=== PATIENT | female | born 1995 | race Caucasian/White ===

== ENCOUNTER → 2017-06-05 | Outpatient (REF) | payer OTHER ==
[~2017-06-05] MED LIST: ACET50TA PO; IBUP-1114 PO; PRENTAB29 PO; PRENTAB9 PO
[2017-06-05 18:10] LABS: BASO % 0.4 % (0.0-1.0); EOS # 0.1 K/mm3 (0.0-0.50); EOS % 0.8 % (0.0-3.0); LARGE UNSTAINED CELL # 0.2 K/mm3 (0.0-0.4); LARGE UNSTAINED CELL % 1.4 % (0.0-4.0); LYMPH # 1.7 K/mm3 (1.5-6.5); LYMPH % 14.3 % (24.0-44.0); MEAN CORPUSCULAR HGB CONC 33.4 g/dl (32.0-36.5); MEAN CORPUSCULAR VOLUME 80.8 fl (80.0-96.0); MONO # 0.5 K/mm3 (0.0-0.8); MONO % 4.5 % (0.0-5.0); NEUTROPHILS # 9.1 K/mm3 (1.8-7.7); NEUTROPHILS % 78.6 % (36.0-66.0); PLATELET COUNT, AUTOMATED 300 k/mm3 (150-450); RED CELL DISTRIBUTION WIDTH 14.8 % (11.5-14.5); WHITE BLOOD COUNT 11.6 K/mm3 (4.0-10.0)
[2017-06-08 10:54] LABS: HBsAg Prenatal NEGATIVE (NEGATIVE)
== END ==
LOC: M LABDRAW1 16:04
PROVIDERS: ATTEND Advanced Practice Midwife
DX: Z34.81 Encounter for supervision of other normal pregnancy, first trimester (principal)

== ENCOUNTER → 2017-06-12 | Outpatient (CLI) | payer OTHER ==
--- NOTE | 2017-06-12 13:29 | REP ---
Obstetric ultrasound for anatomy: There is a single intrauterine gestation in a breech presentation. There is movement and cardiac activity. heart rate is 139 beats per minute. The placenta is anterior. There is no placenta previa or abruptio. Placenta is grade zero. The amniotic fluid volume subjectively is normal. The cervix is 4.6 cm in length. The maternal adnexa and cul-de-sac are unremarkable. By the ultrasound today gestational age is 25 weeks 1 day with an HEMA of 09/24/2017. The LMP is unknown. weight is 145 grams (1 pound, 13 ounces). This is the 61st percentile for 25 weeks 1 day. The following anatomic structures are identified and are unremarkable: Intracranial lateral ventricles, choroid plexus, cerebellum, cisterna magna, facial profile, cavum septum pellucidum, lungs, four-chamber heart, cardiac right and left ventricular outflow tracts, diaphragm, stomach, cord insertion, three-vessel cord, kidneys, bladder, and upper lower extremities. The spine is not optimally demonstrated because of position. Otherwise, there are no anomalies. Follow-up study of the spine might be considered. Signed by Darrion Heath MD 06/12/2017 01:21 P
== END ==
LOC: M SMT 11:31
PROVIDERS: ATTEND Advanced Practice Midwife
DX: Z34.82 Encounter for supervision of other normal pregnancy, second trimester (principal); Z3A.25 25 weeks gestation of pregnancy

== ENCOUNTER → 2017-09-17 | Outpatient (REF) | payer OTHER | LOC: M LAB REF 12:46 | PROVIDERS: ATTEND Advanced Practice Midwife | DX: Z34.83 Encounter for supervision of other normal pregnancy, third trimester (principal); Z36.85 Encounter for antenatal screening for Streptococcus B ==

== ENCOUNTER 2017-09-30 00:10 | Inpatient (IN) | payer OTHER ==
[2017-09-30] VITALS (24 sets, daily range): BP systolic 105–133; BP diastolic 52–77
[~2017-09-30] VITALS: Ht 170.2 cm; Wt 115.6 kg
[2017-09-30] MEDS ORDERED: LR 1,000 ML IV SCH (00:56)
[2017-09-30 01:16] LABS: MEAN CORPUSCULAR HEMOGLOBIN 24.9 pg (27.0-33.0); MEAN CORPUSCULAR HGB CONC 32.7 g/dl (32.0-36.5); MEAN CORPUSCULAR VOLUME 76.2 fl (80.0-96.0); PLATELET COUNT, AUTOMATED 298 10^3/uL (150-450); RED CELL DISTRIBUTION WIDTH 15.4 % (11.5-14.5)
[2017-09-30] MEDS ORDERED: FENTANYL 2MCG/ML ROPIVACAINE 0.2% IN 0.9% NACL 200ML IVBAG As Ordered ONE (01:55)
[2017-09-30] MEDS ORDERED: diphenhydrAMINE INJ 50MG/ML VIAL (J1200) IV PRN (02:32)
[2017-09-30] MEDS ORDERED: EPIDURAL COMMENT XX SCH (02:32)
[2017-09-30] MEDS ORDERED: NALOXONE INJ 0.4 MG/1 ML VIAL (J2310) IV PRN (02:32)
[2017-09-30] MEDS ORDERED: ePHEDrine SULFATE 25 MG/5 ML(5MG/ML) SYRINGE IV PRN (02:32)
[2017-09-30] MEDS ORDERED: EPIDURAL/PCA KEYS XX PRN (02:32)
[2017-09-30] MEDS ORDERED: FENTANYL/ROPIVACAINE/NACL BAG 200 ML EPIDURAL SCH (02:32)
[2017-09-30] MEDS ORDERED: LACTATED RINGER'S 1000 ML IV PRN (02:32)
[2017-09-30] MEDS ORDERED: ONDANSETRON 4MG/2ML VIAL (J2405) IV PRN (02:32)
[2017-09-30] MEDS ORDERED: REFRIGERATOR IV KEYS XX PRN (02:32)
[2017-09-30] MEDS ORDERED: OXYTOCIN 30 UNITS IN 0.9% NaCl 500ML IV BAG (J2590) As Ordered ONE (03:14)
[2017-09-30] MEDS ORDERED: OXYTOCIN DRIP 30 UNITS in APPROPRIATE DILUENT 1 EA IV SCH (04:14)
[2017-09-30] MEDS ORDERED: DOCUSATE SODIUM 100 MG CAP PO PRN (04:15)
[2017-09-30] MEDS ORDERED: ANUSOL HC CREAM 30GM TOP PRN (04:15)
[2017-09-30] MEDS ORDERED: MOM 30ML SUSPENSION UDC PO PRN (04:15)
[2017-09-30] MEDS ORDERED: METHYLERGONOVINE MALEATE 0.2 MG TAB PO PRN (04:15)
[2017-09-30] MEDS ORDERED: ACETAMINOPHEN 500 MG TAB PO PRN (04:15)
[2017-09-30] MEDS ORDERED: MEASLES,MUMPS,RUBELLA VACCINE INJ (MMR-II) (90707) SC SCH (04:15)
[2017-09-30] MEDS ORDERED: RHOGAM 300 MCG (1500 IU) INJ (J2790) IM SCH (04:15)
[2017-09-30] MEDS ORDERED: DIBUCAINE 1% OINTMENT 30GM TOP PRN (04:15)
--- NOTE | 2017-09-30 05:13 | HPE ---
DATE OF ADMISSION: 09/30/2017 REASON FOR ADMISSION: Labor. HISTORY OF PRESENT ILLNESS: Ms. Schneider is a 22-year-old 2, para 1, who presents at 40 weeks 6 days by the mid-term ultrasound with complaints of contractions. She voiced contractions throughout the night and reports active movement. Denies any vaginal bleeding or leakage of fluid. Her course has been remarkable for late entry to care at 22 weeks. PAST MEDICAL HISTORY: None. PAST SURGICAL HISTORY: None. PAST OBSTETRICAL HISTORY: She is 2 para 1. She has had one term vaginal delivery proven to 8 pounds 13 ounces. MEDICATIONS: vitamins. ALLERGIES: No known drug allergies. SOCIAL HISTORY: Denies any alcohol, tobacco or drug use. PHYSICAL EXAMINATION: VITAL SIGNS: Stable. She is afebrile. She has a category one heart tracing with contractions approximately every three minutes on tocometer. LUNGS: Clear to auscultation bilaterally. CARDIOVASCULAR: Heart regular rate and rhythm. CERVICAL EXAM: She is 5 cm dilated, 90% effaced, -2 station. LABORATORY DATA: Blood type is O positive, antibody screen negative. Rubella is immune. RPR nonreactive. Hepatitis surface antigen is negative. HIV is negative. Hepatitis C is nonreactive. Chlamydia and gonorrhea screens are negative. She had a negative GBS. ASSESSMENT: 1. Ms. Schneider is a 22-year-old 2, para 1, at 40 weeks and six days in active labor. 2. Reassuring status. PLAN: 1. Admit to labor and delivery. Complete blood count (CBC), rapid plasma reagin (RPR), type and screen. Urine toxicology screen. 2. The patient is a good candidate for an epidural. 3. Anticipate spontaneous vaginal delivery.
--- NOTE | 2017-09-30 05:22 | DN ---
DATE: 09/30/2017 TIME OF : 0346 hours GENDER: Female. SCORES: Seven and nine. WEIGHT: 9 pounds 1 ounce, or 4110 grams. ANESTHESIA: Epidural. LACERATIONS: Second-degree midline laceration. COUNTS: Five laparotomy sponges accounted for prior to and after delivery. Two sharps removed from the delivery field. ESTIMATED BLOOD LOSS: 300 mL. DELIVERY NOTE: On 09/30/2017, at 0341, Ms. Schneider, a 22-year-old 2, now para 2, had a spontaneous vaginal delivery of a liveborn female infant, scores 7 and 9, weight 4110 grams or 9 pounds 1 ounce. Head was delivered right occiput anterior (SHAHLA). There was a loose nuchal cord which was manually reduced, followed by delivery of left anterior shoulder, right posterior shoulder, and corpus. was handed to mother with good cry. Cord was clamped times two and was cut by the father of the baby under my direction. Cord blood was obtained. Placenta was then drained and delivered grossly intact. A premixed bag of 500 mL of normal saline with 30 units of Pitocin was bolused, along with uterine massage. The uterus firm. On inspection, there was a second-degree midline laceration which was repaired with 3-0 Vicryl Rapide. On re-inspection, cervix, vagina and perineum were grossly intact and hemostatic. Mother and baby to recovery in stable condition. The couple has decided to name their daughter
[2017-09-30] MEDS: PRENATAL VITAMINS CHEWABLE TABLET PO SCH (08:15)
[2017-09-30] MEDS: IBUPROFEN 800 MG TAB PO PRN (19:43)
[2017-10-01 06:00] VITALS: BP 107/55
[2017-10-01] MEDS: PRENATAL VITAMINS CHEWABLE TABLET PO SCH (07:40)
[2017-10-01] MEDS: IBUPROFEN 800 MG TAB PO PRN (07:42)
[2017-10-01] MEDS ORDERED: MOTR200T44 PO (08:06)
[2017-10-01] MEDS ORDERED: INFLUENZA QUADRIVALENT PF VACCINE 0.5ML SYRINGE (90686) IM ONE (10:00)
== END 2017-10-01 11:10 | disposition home or self-care (01) | DRG 775 ==
LOC: M LDO 00:10 → M LDI 00:34 → M OBS 06:30
PROVIDERS: ADMIT Obstetrics & Gynecology; ATTEND Obstetrics & Gynecology
PROC: 10E0XZZ Delivery of Products of Conception, External Approach (ICD-10-PCS; principal; 2017-09-30)
PROC: 0KQM0ZZ Repair Perineum Muscle, Open Approach (ICD-10-PCS; 2017-09-30)
DX: O48.0 Post-term pregnancy (principal); Z3A.40 40 weeks gestation of pregnancy; O70.1 Second degree perineal laceration during delivery; O69.81X0 Labor and delivery complicated by cord around neck, without compression, not applicable or unspecified; Z37.0 Single live birth

== ENCOUNTER 2018-12-27 08:42 | Emergency (ER) | payer OTHER ==
[~2018-12-27] VITALS: Ht 172.7 cm; Wt 97.7 kg
[~2018-12-27 08:42] MED LIST changes: -ACET50TA PO; +MAPA500T2 PO; +MOTR200T44 PO
[2018-12-27 08:43] VITALS: BP 124/61
[2018-12-27] MEDS ORDERED: AUGM875T28 PO (09:17)
[2018-12-27] MEDS ORDERED: ACET-683 PO (09:17)
[2018-12-27] MEDS ORDERED: IBUP80TA PO (09:17)
== END 2018-12-27 09:30 | disposition home or self-care (01) ==
LOC: M ED 08:42
DX: K04.7 Periapical abscess without sinus (principal); K02.9 Dental caries, unspecified

== ENCOUNTER 2019-03-08 20:35 | Emergency (ER) | payer OTHER ==
[~2019-03-08] VITALS: Ht 172.7 cm; Wt 95.5 kg
[2019-03-08 20:35] VITALS: BP 125/68
[~2019-03-08 20:35] MED LIST changes: +ACET-683 PO; +AUGM875T28 PO; +IBUP80TA PO
[2019-03-08] MEDS ORDERED: KEFL500C17 PO (22:13)
[2019-03-08] MEDS ORDERED: CEPHALEXIN 500 MG CAP PO ONE (22:30)
== END 2019-03-08 23:03 | disposition home or self-care (01) ==
LOC: M ED 20:35
DX: L03.314 Cellulitis of groin (principal); D57.80 Other sickle-cell disorders without crisis; F32.9 Major depressive disorder, single episode, unspecified; Z72.0 Tobacco use

== ENCOUNTER → 2019-04-06 | Outpatient (CLI) | payer OTHER ==
[~2019-04-06] MED LIST changes: +KEFL500C17 PO
[2019-04-06 17:58] LABS: BASO # 0.1 10^3/uL (0.0-0.2); BASO % 0.4 % (0.0-1.0); EOS # 0.1 10^3/uL (0.0-0.50); EOS % 0.6 % (0.0-3.0); HEMATOCRIT 34.5 % (36.0-47.0); HEMOGLOBIN 11.3 g/dl (12.0-15.5); LYMPH # 2.3 10^3/uL (1.5-6.5); LYMPH % 16.8 % (24.0-44.0); MEAN CORPUSCULAR HGB CONC 32.8 g/dl (32.0-36.5); MEAN CORPUSCULAR VOLUME 85.6 fl (80.0-96.0); MONO # 0.8 10^3/uL (0.0-0.8); MONO % 5.7 % (0.0-5.0); NEUTROPHILS # 10.2 10^3/uL (1.8-7.7); NEUTROPHILS % 75.8 % (36.0-66.0); PLATELET COUNT, AUTOMATED 279 10^3/uL (150-450); RED BLOOD COUNT 4.03 10^6/uL (4.00-5.40); WHITE BLOOD COUNT 13.4 10^3/uL (4.0-10.0)
[2019-04-06 19:25] LABS: CHLAMYDIA DNA AMPLIFICATION NEGATIVE (NEGATIVE); GC DNA AMPLIFICATION NEGATIVE (NEGATIVE)
[2019-04-08 11:34] LABS: HIV 1&2 SCREEN CENTAUR NEGATIVE (NEGATIVE); RUBELLA IgG QUALITATIVE IMMUNE (IMMUNE)
== END ==
LOC: M SMT 15:03
PROVIDERS: ATTEND Advanced Practice Midwife
DX: Z36.89 Encounter for other specified antenatal screening (principal)

== ENCOUNTER 2019-04-17 12:39 | Outpatient (CLI) | payer OTHER ==
[~2019-04-17] VITALS: Ht 172.7 cm; Wt 107.6 kg
[2019-04-17 12:57] VITALS: BP 119/64
[2019-04-17] MEDS ORDERED: PRENTAB9 PO (13:08)
[2019-04-17] MEDS ORDERED: MAPA500T2 PO (13:08)
== END 2019-04-17 13:41 | disposition home or self-care (01) ==
LOC: M LDO 12:39
PROVIDERS: ATTEND Specialist
DX: O26.892 Other specified pregnancy related conditions, second trimester (principal); R10.9 Unspecified abdominal pain; O47.02 False labor before 37 completed weeks of gestation, second trimester; Z3A.24 24 weeks gestation of pregnancy
CPT/HCPCS: G0378; G0463

== ENCOUNTER → 2019-04-28 | Outpatient (CLI) | payer OTHER ==
--- NOTE | 2019-04-28 16:24 | REP ---
Clinical: Anatomical evaluation. Comparison: 04/12/2019 . Findings: Examination demonstrates a single live intrauterine in transverse (head to maternal right) presentation. motion is identified by technologist. Placenta is noted posterior and grade one without evidence for placenta previa or abruption. Amniotic fluid volume is normal. Cervix measures 5.3 cm in length and appears closed. Nuchal cord cannot be excluded. Gestational age by LMP 26 weeks 3 days with HEMA 08/01/2019 . Gestational age by current measurements 26 weeks 6 days with HEMA 07/29/2019 . FHR equals 133 beats per minute. Estimated weight 944 grams ( 46th percentile). Anatomical assessment demonstrates normal structures including cranium, choroid plexus, cavum, cerebellum/posterior fossa, facial features, diaphragm, stomach, cord insertion/three-vessel cord, kidneys/bladder, spine, and upper extremities. Impression: 1. Single live intrauterine in transverse lie demonstrating appropriate interval growth. 2. Nuchal cord cannot be excluded. 3. In conjunction with prior examination anatomical assessment is complete and normal. Electronically Signed by Yosvany Reis MD 04/28/2019 04:16 P
== END ==
LOC: M RAD 15:32
PROVIDERS: ATTEND Advanced Practice Midwife
DX: Z34.82 Encounter for supervision of other normal pregnancy, second trimester (principal); Z3A.26 26 weeks gestation of pregnancy

== ENCOUNTER → 2019-05-02 | Outpatient (REF) | payer OTHER | LOC: M LAB REF 12:39 | PROVIDERS: ATTEND Advanced Practice Midwife | DX: Z34.82 Encounter for supervision of other normal pregnancy, second trimester (principal) ==

== ENCOUNTER → 2019-05-26 | Outpatient (REF) | payer OTHER | LOC: M LAB REF 13:19 | PROVIDERS: ATTEND Advanced Practice Midwife | DX: Z34.82 Encounter for supervision of other normal pregnancy, second trimester (principal) ==

== ENCOUNTER → 2019-07-08 | Outpatient (REF) | payer OTHER | LOC: M LAB REF 16:55 | PROVIDERS: ATTEND Advanced Practice Midwife | DX: Z34.83 Encounter for supervision of other normal pregnancy, third trimester (principal) ==

== ENCOUNTER → 2019-07-12 | Outpatient (CLI) | payer OTHER ==
[2019-07-12 18:24] LABS: HEMATOCRIT 34.4 % (36.0-47.0); HEMOGLOBIN 10.9 g/dl (12.0-15.5); MEAN CORPUSCULAR HEMOGLOBIN 24.9 pg (27.0-33.0); MEAN CORPUSCULAR HGB CONC 31.7 g/dl (32.0-36.5); MEAN CORPUSCULAR VOLUME 78.7 fl (80.0-96.0); PLATELET COUNT, AUTOMATED 271 10^3/uL (150-450); RED BLOOD COUNT 4.37 10^6/uL (4.00-5.40)
== END ==
LOC: M SMT 13:20
PROVIDERS: ATTEND Advanced Practice Midwife
DX: Z34.83 Encounter for supervision of other normal pregnancy, third trimester (principal)

== ENCOUNTER 2019-07-30 21:10 | Inpatient (IN) | payer OTHER ==
[~2019-07-30] VITALS: Ht 172.7 cm; Wt 110.0 kg
[2019-07-30 21:29] VITALS: BP 125/60
[2019-07-30 21:39] VITALS: BP 117/59
[2019-07-30 22:26] LABS: HEMATOCRIT 31.5 % (36.0-47.0); MEAN CORPUSCULAR HEMOGLOBIN 24.8 pg (27.0-33.0); MEAN CORPUSCULAR HGB CONC 31.7 g/dl (32.0-36.5); PLATELET COUNT, AUTOMATED 227 10^3/uL (150-450); RED BLOOD COUNT 4.04 10^6/uL (4.00-5.40); WHITE BLOOD COUNT 9.5 10^3/uL (4.0-10.0)
[2019-07-30 23:25] VITALS: BP 110/63
[2019-07-31] VITALS (47 sets, daily range): BP systolic 87–134; BP diastolic 48–92
[2019-07-31] MEDS ORDERED: miSOPROStol 50 MCG 1/2 TAB (S0191) SL SCH
[2019-07-31] MEDS ORDERED: LR 1,000 ML IV ONE (05:30)
[2019-07-31] MEDS ORDERED: FENTANYL 2MCG/ML ROPIVACAINE 0.2% IN 0.9% NACL 100ML IVBAG As Ordered ONE (05:36)
[2019-07-31] MEDS ORDERED: REFRIGERATOR IV KEYS XX PRN (06:25)
[2019-07-31] MEDS ORDERED: EPIDURAL/PCA KEYS XX PRN (06:25)
[2019-07-31] MEDS ORDERED: EPIDURAL COMMENT XX SCH (06:25)
[2019-07-31] MEDS ORDERED: ONDANSETRON 4MG/2ML VIAL (J2405) IV PRN ×2 (06:25→14:00)
[2019-07-31] MEDS ORDERED: NALOXONE INJ 0.4 MG/1 ML VIAL (J2310) IV PRN (06:25)
[2019-07-31] MEDS ORDERED: diphenhydrAMINE INJ 50MG/ML VIAL (J1200) IV PRN (06:25)
[2019-07-31] MEDS ORDERED: FENTANYL/ROPIVACAINE/NACL BAG 100 ML EPIDURAL SCH (06:25)
[2019-07-31] MEDS: LR 1,000 ML IV SCH ×3 (06:44→12:52)
[2019-07-31] MEDS: ePHEDrine SULFATE 25 MG/5 ML(5MG/ML) SYRINGE IV PRN ×3 (08:19→08:30)
[2019-07-31] MEDS ORDERED: OXYTOCIN DRIP 30 UNITS in IV 1 EA IV SCH ×2 (10:00→14:00)
[2019-07-31] MEDS ORDERED: IBUPROFEN 600 MG TAB PO PRN (14:00)
[2019-07-31] MEDS ORDERED: LR 1,000 ML IV SCH (14:00)
[2019-07-31] MEDS ORDERED: ACETAMINOPHEN TAB 650MG DOSE (2X325MG) PO PRN (14:00)
[2019-07-31] MEDS ORDERED: PROMETHAZINE 25 MG TAB PO PRN (14:00)
[2019-07-31] MEDS ORDERED: DIBUCAINE 1% OINTMENT 30GM TOP PRN (15:00)
[2019-07-31] MEDS ORDERED: RHOGAM 300 MCG (1500 IU) INJ (J2790) IM SCH (15:00)
[2019-07-31] MEDS ORDERED: MEASLES,MUMPS,RUBELLA VACCINE INJ (MMR-II) (90707) SC SCH (15:00)
[2019-07-31] MEDS: IBUPROFEN 800 MG TAB PO PRN ×2 (15:06→22:30)
[2019-07-31] MEDS ORDERED: SLF 3 ML SYR IV PRN (16:00)
[2019-07-31] MEDS ORDERED: INFLUENZA QUADRIVALENT PF VACCINE 0.5ML SYRINGE (90686) IM PRN (17:30)
[2019-07-31] MEDS: ACETAMINOPHEN 500 MG TAB PO PRN (18:00)
[2019-07-31] MEDS ORDERED: DOCUSATE SODIUM 100 MG CAP PO PRN (21:00)
[2019-07-31] MEDS: SLF 3 ML SYR IV SCH (22:22)
[2019-08-01 06:52] VITALS: BP 94/54
[2019-08-01] MEDS: SLF 3 ML SYR IV SCH (07:02)
[2019-08-01] MEDS: PRENATAL VITAMINS CHEWABLE TABLET PO SCH (08:22)
[2019-08-01] MEDS: IBUPROFEN 800 MG TAB PO PRN ×2 (08:22→19:00)
[2019-08-01] MEDS: ACETAMINOPHEN 500 MG TAB PO PRN (14:06)
[2019-08-01 17:53] VITALS: BP 109/62
[2019-08-02] MEDS: IBUPROFEN 800 MG TAB PO PRN (05:22)
[2019-08-02 06:49] VITALS: BP 113/59
[2019-08-02] MEDS ORDERED: IBUP80TA PO (07:35)
[2019-08-02] MEDS ORDERED: ACET-683 PO (07:35)
[2019-08-02] MEDS: PRENATAL VITAMINS CHEWABLE TABLET PO SCH (09:08)
[2019-08-02] MEDS: ACETAMINOPHEN 500 MG TAB PO PRN (09:10)
== END 2019-08-02 12:05 | disposition home or self-care (01) | DRG 807 ==
LOC: M LDI 21:10 → M OBS 07-31 16:18
PROVIDERS: ADMIT Obstetrics & Gynecology; ATTEND Obstetrics & Gynecology
PROC: 3E0P7GC Introduction of Other Therapeutic Substance into Female Reproductive, Via Natural or Artificial Opening (ICD-10-PCS; 2019-07-30)
PROC: 10E0XZZ Delivery of Products of Conception, External Approach (ICD-10-PCS; principal; 2019-07-31)
PROC: 0HQ9XZZ Repair Perineum Skin, External Approach (ICD-10-PCS; 2019-07-31)
PROC: 10907ZC Drainage of Amniotic Fluid, Therapeutic from Products of Conception, Via Natural or Artificial Opening (ICD-10-PCS; 2019-07-31)
DX: O69.1XX0 Labor and delivery complicated by cord around neck, with compression, not applicable or unspecified (principal); Z37.0 Single live birth; Z3A.39 39 weeks gestation of pregnancy; O70.0 First degree perineal laceration during delivery